=== PATIENT | male | born 1955 | race American Indian/Alaskan Native ===

== ENCOUNTER 2018-04-23 10:22 | Outpatient (CLI) | payer MEDICARE ==
--- NOTE | 2018-04-23 12:56 | XRay Report ---
XRAY CHEST TWO VIEWS: 04/23/18 10:22:00 CLINICAL: Cough. COMPARISON: 09/22/16 FINDINGS: Stable cardiomegaly. Large central pulmonary vessels with redistribution of pulmonary blood flow to the upper lobes.However, the pulmonary vessels are more distinct than on the prior exam. The lungs are normally expanded and clear. No airspace disease or pleural effusion. Dextroscoliosis and multilevel degenerative changes in the thoracic spine with large osteophytes. IMPRESSION: Cardiomegaly and pulmonary venous hypertension.No pulmonary edema and no pneumonia.
== END 2018-04-23 10:23 | disposition home or self-care (01) ==
LOC: SPVIMAG 10:22
DX: I11.0 Hypertensive heart disease with heart failure (principal); I50.9 Heart failure, unspecified; J44.1 Chronic obstructive pulmonary disease with (acute) exacerbation; Z71.6 Tobacco abuse counseling
CPT/HCPCS: 71046

== ENCOUNTER 2018-06-02 15:30 | Emergency (ER) | payer MEDICARE ==
[2018-06-02 15:41] VITALS: BP 128/79
[2018-06-02] MEDS ORDERED: PEPCID IV ONE (17:24)
[2018-06-02] MEDS ORDERED: ZOFRAN IV ONE ×2 (17:24→22:08)
--- NOTE | 2018-06-02 17:26 | Emergency Department Report ---
Blank Doc - Documentation Documentation: Patient is a 62-year-old -Ugand[place] male who is complaining of 3 weeks of epigastric pain. Patient states is having difficulty eating secondary to making his stomach hurt worse. Patient's pain is centered in the epigastrium there is no radiation. Patient states is 8 out of 10 in severity and sharp. Patient states is some mild nausea no vomiting. Patient did have some black stools 2 weeks ago he took a laxative and was able to use the bathroom quite a bit and now is not having bowel movements at all. Patient is very tender in the epigastrium with some voluntary guardin patient will be moved to a treatment room for IV fluids Ms. symptomatic relief and laboratory and CT studies..
[2018-06-02 17:44] LABS: Basophils # (Auto) 0.1 K/mm3 (0.0-0.1); Basophils % (Auto) 0.6 % (0.0-1.8); Eosinophils # (Auto) 0.2 K/mm3 (0.0-0.4); Eosinophils % (Auto) 1.7 % (0.0-4.3); Hematocrit 44.9 % (35.5-45.6); Hemoglobin 14.6 gm/dl (11.8-15.2); Lymphocytes # (Auto) 2.8 K/mm3 (1.2-5.4); Lymphocytes % (Auto) 27.7 % (13.4-35.0); Mean Corpuscular HGB Conc 33 % (32-34); Mean Corpuscular Hemoglobin 31 pg (28-32); Mean Corpuscular Volume 95 fl (84-94); Monocytes % (Auto) 9.4 % (0.0-7.3); Platelet Count 309 K/mm3 (140-440); Red Blood Count 4.74 M/mm3 (3.65-5.03); Red Cell Distribution Width 15.7 % (13.2-15.2)
[2018-06-02 17:55] LABS: Albumin 3.8 g/dL (3.9-5); Calcium 9.7 mg/dL (8.4-10.2)
--- NOTE | 2018-06-02 20:51 | Cat Scan Report ---
FINAL REPORT PROCEDURE: CT ABDOMEN PELVIS WO CON TECHNIQUE: Computerized axial tomography of the abdomen and pelvis was performed without intravenous contrast. This study is performed without intravascular contrast material and its sensitivity for abdominal and pelvic pathology, including neoplasms, inflammation, abscess, free fluid, thrombosis, arterial dissection and infarction, is reduced compared with a contrast enhanced study. HISTORY: epigastric pain COMPARISON: No prior studies are available for comparison. FINDINGS: Visualized lower thorax: No significant abnormality. Liver: There is diffuse low attenuation of the liver, compatible with fatty infiltration. Spleen: Normal size and attenuation. Gallbladder and biliary system: Gallbladder is present. Pancreas: There is haziness of the pancreatic head and body, which may be related to mild pancreatitis. Adrenals: Normal. Kidneys: No hydronephrosis or urolithiasis. GI tract: Appendix is visualized and does not appear inflamed. No bowel obstruction or acute inflammation. Lymph nodes and mesentery: Bilateral inguinal adenopathy, measuring up to 16 millimeters. Vasculature: Normal. Bladder: Normal. Reproductive organs: Normal. Peritoneum: No free fluid. Musculoskeletal structures: There are degenerative disc and facet arthritic changes of the lower lumbar spine. In the right subcutaneous gluteal region near the gluteal cleft there is a possible subcutaneous fluid collection/abscess, measuring up to 3 centimeters. This is not fully imaged. Other: None. IMPRESSION: Possible mild pancreatitis. Correlate with patient lab values. Bilateral inguinal lymphadenopathy. In the right subcutaneous gluteal region near the gluteal cleft there is a possible subcutaneous fluid collection/abscess, measuring up to 3 centimeters. This is not fully imaged.
--- NOTE | 2018-06-02 21:19 | Emergency Department Report ---
ED Abdominal Pain HPI - General Chief Complaint: Abdominal Pain Stated Complaint: STOMACH ACHE Time Seen by Provider: 06/02/18 17:15 Source: patient Mode of arrival: Ambulatory Limitations: No Limitations - History of Present Illness Initial Comments: 62-year-old -Togolese male with a past medical history of hypertension chronic kidney disease sleep apnea gout comes in for abdominal pain for 3 weeks. Patient reports he had some black stool at times. Patient reports is having problems with constipation and reports no relief with laxatives. Patient claims a mild to severe upper gastric knot in his stomach. Patient does admit to drinking alcohol on the weekends. Patient reports he took a hydrocodone but did not help with this pain. Patient denies having any diabetes. Patient denies any fever or chills. -: week(s) (3) Radiation: LUQ Severity scale (0 -10): 9 Quality: aching, sharp Consistency: constant Improves With: nothing Worsens With: nothing Associated Symptoms: constipation Treatments Prior to Arrival: other ([place]) - Related Data Home Medications Medication Instructions Recorded Confirmed Last Taken Aspirin [Adult Low Dose Aspirin EC] 81 mg PO DAILY 04/12/16 11/12/16 11/11/16 Allopurinol [Zyloprim] 100 mg PO BID 06/20/16 11/12/16 11/12/16 08:00 Previous Rx's Medication Instructions Recorded Last Taken Type ALBUTEROL Inhaler [ProAir HFA 2 puff IH QID PRN #1 inhalation 09/04/14 11/12/16 08:00 Rx Inhaler] Diltiazem [Cardizem] 30 mg PO TID #90 tablet 09/27/16 11/12/16 08:00 Rx HYDROcodone/APAP 10-325 [[place] 1 each PO Q8HR PRN #15 tablet 06/03/18 Unknown Rx 10/325] Omeprazole 40 mg PO QDAY 30 Days #30 06/03/18 Unknown Rx capsule. Allergies Allergy/AdvReac Type Severity Reaction Status Date / Time No Known Allergies Allergy Unverified 08/28/14 19:59 ED Review of Systems ROS: Stated complaint: STOMACH ACHE Other details as noted in HPI Constitutional: denies: chills, fever Cardiovascular: denies: chest pain, palpitations Gastrointestinal: abdominal pain, constipation Neurological: denies: headache, weakness, paresthesias Psychiatric: denies: anxiety, depression ED Past Medical Hx - Past Medical History Previous Medical History?: Yes Hx Hypertension: Yes (FOR 4 MTHS) Hx Heart Attack/AMI: No Hx Congestive Heart Failure: Yes Hx Renal Disease: Yes (CKD) Hx Arthritis: Yes Hx Seizures: No Hx Asthma: Yes Hx COPD: Yes (USE O2 2L N/C PRN) Hx HIV: No Additional medical history: gout, sleep apnea - Surgical History Past Surgical History?: Yes Additional Surgical History: right thigh surgery. lump removed from right jaw - Social History Smoking Status: Current Every Day Smoker Substance Use Type: Alcohol, Prescribed - Medications Home Medications: Home Medications Medication Instructions Recorded Confirmed Last Taken Type ALBUTEROL Inhaler [ProAir HFA 2 puff IH QID PRN #1 inhalation 09/04/14 11/12/16 11/12/16 08:00 Rx Inhaler] Aspirin [Adult Low Dose Aspirin EC] 81 mg PO DAILY 04/12/16 11/12/16 11/11/16 History Allopurinol [Zyloprim] 100 mg PO BID 06/20/16 11/12/16 11/12/16 08:00 History Diltiazem [Cardizem] 30 mg PO TID #90 tablet 09/27/16 11/12/16 11/12/16 08:00 Rx HYDROcodone/APAP 10-325 [[place] 1 each PO Q8HR PRN #15 tablet 06/03/18 Unknown Rx 10/325] Omeprazole 40 mg PO QDAY 30 Days #30 06/03/18 Unknown Rx capsule. ED Physical Exam - General Limitations: No Limitations General appearance: alert, in no apparent distress - Head Head exam: Present: atraumatic, normocephalic - Eye Eye exam: Present: normal appearance - ENT ENT exam: Present: mucous membranes moist - Neck Neck exam: Present: full ROM - Respiratory Respiratory exam: Present: normal lung sounds bilaterally. Absent: respiratory distress - Cardiovascular Cardiovascular Exam: Present: regular rate, normal rhythm. Absent: systolic murmur, diastolic murmur, rubs, gallop - GI/Abdominal GI/Abdominal exam: Present: soft, distended, tenderness (epigastric to left upper quadrant), guarding (mild guarding), normal bowel sounds - Extremities Exam Extremities exam: Present: normal inspection, full ROM - Back Exam Back exam: Present: normal inspection - Neurological Exam Neurological exam: Present: alert, oriented X3 - Psychiatric Psychiatric exam: Present: normal affect, normal mood ED Course Vital Signs 06/02/18 06/02/18 15:36 22:32 Temperature 98.5 F Pulse Rate 90 Respiratory 20 16 Rate Blood Pressure 128/79 O2 Sat by Pulse 97 Oximetry ED Medical Decision Making - Lab Data Result diagrams: 06/02/18 17:33 06/02/18 17:33 - Radiology Data Radiology results: report reviewed IMPRESSION: Possible mild pancreatitis. Correlate with patient lab values. Bilateral inguinal lymphadenopathy. In the right subcutaneous gluteal region near the gluteal cleft there is a possible subcutaneous fluid collection/abscess, measuring up to 3 centimeters. This is not fully imaged. Transcribed By: [facility] Dictated By: CLEMENTINA MUSTAFA M.D. Electronically Authenticated By: CLEMENTINA MUSTAFA M.D. Signed Date/Time: 06/02/182046 DD/ 46 TD/TT: 06/02/182046 - Medical Decision Making Patient has been evaluated by this provider fast track. Labs came back with elevated lipase of 126. CT came back concerning for mild pancreatitis. Orders were placed for IV fluids Dilaudid 1 mg Zofran 4 mg. Patient reports that his pain has ceased he feels much better. Discussed the patient to stay away from alcohol. Drink plenty of fluids and advance his diet as tolerated. Discussed patient to follow-up with gastroenterology as well as his primary care provider. I will discharge patient on pain medication. Critical care attestation.: If time is entered above; I have spent that time in minutes in the direct care of this critically ill patient, excluding procedure time. ED Disposition Clinical Impression: Acute pancreatitis without infection or necrosis Qualifiers: Pancreatitis type: unspecified pancreatitis type Qualified Code(s): K85.90 - Acute pancreatitis without necrosis or infection, unspecified Disposition: DC-01 TO HOME OR SELFCARE Is pt being admited?: No Does the pt Need Aspirin: No Condition: Stable Instructions: Pancreatitis (ED) Additional Instructions: Please take pain medication as needed. Please follow-up with the terrazzo layer as well as her primary care provider for further workup and evaluation. Prescriptions: HYDROcodone/APAP 10-325 [[place] 10/325] 1 each PO Q8HR PRN #15 tablet PRN Reason: Pain Omeprazole 40 mg PO QDAY 30 Days #30 capsule. Referrals: CHELITA PLUMMER [Other] - 3-5 Days [facility] [Provider Group] - 3-5 Days Forms: Work/School Release Form(ED)
[2018-06-02] MEDS ORDERED: DILAUDID IM ONE (22:08)
[2018-06-02] MEDS ORDERED: NACL 0.9% 1000 ML 1,000 ML IV ONE (22:08)
== END 2018-06-03 02:34 | disposition home or self-care (01) ==
LOC: ED 15:30
DX: K85.90 Acute pancreatitis without necrosis or infection, unspecified (principal); I13.0 Hypertensive heart and chronic kidney disease with heart failure and stage 1 through stage 4 chronic kidney disease, or unspecified chronic kidney disease; N18.9 Chronic kidney disease, unspecified; I50.9 Heart failure, unspecified; M19.90 Unspecified osteoarthritis, unspecified site; J44.9 Chronic obstructive pulmonary disease, unspecified; F17.200 Nicotine dependence, unspecified, uncomplicated; Z79.82 Long term (current) use of aspirin
CPT/HCPCS: 36415; 74176; 80053; 83690; 85025; 96361; 96372; 96374; 96375; 96376; 99284; J1170; J2405; J7030

== ENCOUNTER 2022-01-20 14:59 | Emergency (ER) | payer MEDICARE ==
[2022-01-20] MEDS ORDERED: SODIUM CHLORIDE 0.9% 1000 ML 1,000 ML IV ONE (15:39)
[2022-01-20] MEDS ORDERED: KETOROLAC 30 MG/1 ML INJ IV ONE (15:39)
[2022-01-20 16:22] LABS: Calcium 8.6 mg/dL (8.4-10.2)
[2022-01-20 16:32] LABS: INR 0.87 (0.87-1.13)
[2022-01-20 16:40] LABS: Basophils % (Auto) 0.4 % (0.0-1.8); Eosinophils % (Auto) 0.5 % (0.0-4.3); Hematocrit 34.2 % (35.5-45.6); Hemoglobin 11.9 gm/dl (11.8-15.2); Lymphocytes # (Auto) 2.4 K/mm3 (1.2-5.4); Lymphocytes % (Auto) 26.5 % (13.4-35.0); Mean Corpuscular HGB Conc 35 % (32-34); Mean Corpuscular Volume 98 fl (84-94); Monocytes # (Auto) 0.7 K/mm3 (0.0-0.8); Monocytes % (Auto) 8.2 % (0.0-7.3); Platelet Count 263 K/mm3 (140-440); Red Blood Count 3.49 M/mm3 (3.65-5.03); Red Cell Distribution Width 16.8 % (13.2-15.2)
[2022-01-20 16:59] LABS: Bilirubin,Urine NEG (Negative); Blood,Urine NEG (Negative); Color,Urine Yellow (Yellow); Mucus,Urine 1+ /HPF; Protein,Urine <15 mg/dL mg/dL (Negative); Urobilinogen,Urine < 2.0 mg/dL (<2.0)
--- NOTE | 2022-01-20 18:33 | Cat Scan Report ---
CT ABDOMEN AND PELVIS WITHOUT CONTRAST INDICATION / CLINICAL INFORMATION: Unspecified abdominal pain. TECHNIQUE: Axial CT images were obtained through the abdomen and pelvis without IV contrast. All CT scans at [facility] location are performed using CT dose reduction for ALARA by means of automated exposure control. COMPARISON: CT abdomen and pelvis without contrast from 06/06/2018. FINDINGS: LOWER CHEST: No significant abnormality. LIVER: No significant abnormality. GALLBLADDER: No significant abnormality. BILE DUCTS: No significant abnormality. PANCREAS: No significant abnormality. SPLEEN: No significant abnormality. ADRENALS: No significant abnormality. RIGHT KIDNEY/URETER: No significant abnormality. LEFT KIDNEY/URETER: No significant abnormality. STOMACH/SMALL BOWEL: No significant abnormality. COLON: Status post right hemicolectomy without acute findings. There is noninflamed descending and si gmoid diverticulosis. APPENDIX: Surgically absent. PERITONEUM: No free fluid. No free air. No fluid collection. LYMPH NODES: No significant adenopathy. VASCULATURE: There is mild generalized atherosclerosis without other significant abnormalities. URINARY BLADDER: Partially collapsed without acute findings. REPRODUCTIVE ORGANS: No significant abnormality. ADDITIONAL FINDINGS: A possible sebaceous cyst is seen anteriorly and medially along the proximal rig ht thigh at the level of the scrotum measuring up to 4.7 cm on image 2:30 of series 2. No significant surrounding fat stranding is identified. BONES: No acute findings. There are moderate degenerative changes of the spine and pelvis. IMPRESSION: 1. No acute abnormality of the abdomen or pelvis. 2. Additional findings as above. Signer Name: Anup Stanley MD Signed: 01/20/2022 6:28 PM Workstation Name: [id number]
--- NOTE | 2022-01-20 18:42 | Emergency Department Report ---
ED Abdominal Pain HPI - General Chief Complaint: Abdominal Pain Stated Complaint: ABD AND BACK PAIN Time Seen by Provider: 01/20/22 15:33 Source: patient Mode of arrival: Ambulatory Limitations: No Limitations - History of Present Illness Initial Comments: right side abdominal pain for last 24 hours, rghit side going to his back no nausea or voming nof ever no chest pain , history of htn and heart disease , no fever no chills , no urinary symtpoms MD Complaint: abdominal pain, flank pain -: Gradual, hour(s) Location: R flank Radiation: back Migration to: no migration Severity scale (0 -10): 8 Quality: aching Consistency: intermittent Improves With: nothing Worsens With: nothing - Related Data Home Medications Medication Instructions Recorded Confirmed Last Taken Aspirin [Adult Low Dose Aspirin EC] 81 mg PO DAILY 04/12/16 11/12/16 11/11/16 allopurinoL [Zyloprim] 100 mg PO BID 06/20/16 11/12/16 11/12/16 08:00 Previous Rx's Medication Instructions Recorded Last Taken Type Albuterol Mdi (or & Nicu Only) 2 puff IH QID PRN #1 inhalation 09/04/14 11/12/16 08:00 Rx [ProAir HFA Inhaler] dilTIAZem [Cardizem] 30 mg PO TID #90 tablet 09/27/16 11/12/16 08:00 Rx HYDROcodone/APAP 10-325 [[place] 1 each PO Q8HR PRN #15 tablet 06/03/18 Unknown Rx 10/325] Omeprazole 40 mg PO QDAY 30 Days #30 06/03/18 Unknown Rx capsule. Acetaminophen/Codeine [Tylenol 1 tab PO Q6H PRN #10 tab 01/20/22 Unknown Rx /Codeine # 3 tab] Cyclobenzaprine HCl [Flexeril 5 MG 5 mg PO TID #10 tab 01/20/22 Unknown Rx TAB] Allergies Allergy/AdvReac Type Severity Reaction Status Date / Time No Known Allergies Allergy Unverified 08/28/14 19:59 ED Review of Systems ROS: Stated complaint: ABD AND BACK PAIN Other details as noted in HPI Constitutional: denies: chills, fever Eyes: denies: eye pain, eye discharge, vision change ENT: denies: ear pain, throat pain Respiratory: denies: cough, shortness of breath, wheezing Cardiovascular: denies: chest pain, palpitations Endocrine: no symptoms reported Gastrointestinal: denies: abdominal pain, nausea, diarrhea Genitourinary: denies: urgency, dysuria Musculoskeletal: denies: back pain, joint swelling, arthralgia Skin: denies: rash, lesions Neurological: denies: headache, weakness, paresthesias Psychiatric: denies: anxiety, depression Hematological/Lymphatic: denies: easy bleeding, easy bruising ED Past Medical Hx - Past Medical History Hx Hypertension: Yes Hx Heart Attack/AMI: No Hx Congestive Heart Failure: Yes Hx Renal Disease: Yes (CKD) Hx Arthritis: Yes Hx Seizures: No Hx Asthma: Yes Hx COPD: Yes Hx HIV: No Additional medical history: gout, sleep apnea - Surgical History Additional Surgical History: right thigh surgery. lump removed from right jaw - Social History Smoking Status: Current Some Day Smoker - Medications Home Medications: Home Medications Medication Instructions Recorded Confirmed Last Taken Type Albuterol Mdi (or & Nicu Only) 2 puff IH QID PRN #1 inhalation 09/04/14 11/12/16 11/12/16 08:00 Rx [ProAir HFA Inhaler] Aspirin [Adult Low Dose Aspirin EC] 81 mg PO DAILY 04/12/16 11/12/16 11/11/16 History allopurinoL [Zyloprim] 100 mg PO BID 06/20/16 11/12/16 11/12/16 08:00 History dilTIAZem [Cardizem] 30 mg PO TID #90 tablet 09/27/16 11/12/16 11/12/16 08:00 Rx HYDROcodone/APAP 10-325 [[place] 1 each PO Q8HR PRN #15 tablet 06/03/18 Unknown Rx 10/325] Omeprazole 40 mg PO QDAY 30 Days #30 06/03/18 Unknown Rx capsule. Acetaminophen/Codeine [Tylenol 1 tab PO Q6H PRN #10 tab 01/20/22 Unknown Rx /Codeine # 3 tab] Cyclobenzaprine HCl [Flexeril 5 MG 5 mg PO TID #10 tab 01/20/22 Unknown Rx TAB] ED Physical Exam - General Limitations: No Limitations General appearance: alert, in no apparent distress - Head Head exam: Present: atraumatic, normocephalic - Eye Eye exam: Present: normal appearance - ENT ENT exam: Present: mucous membranes moist - Neck Neck exam: Present: normal inspection - Respiratory Respiratory exam: Present: normal lung sounds bilaterally. Absent: respiratory distress - Cardiovascular Cardiovascular Exam: Present: regular rate, normal rhythm. Absent: systolic murmur, diastolic murmur, rubs, gallop - GI/Abdominal GI/Abdominal exam: Present: tenderness, normal bowel sounds - Rectal Rectal exam: Present: deferred - Extremities Exam Extremities exam: Present: normal inspection - Back Exam Back exam: Present: normal inspection - Neurological Exam Neurological exam: Present: alert, oriented X3 - Psychiatric Psychiatric exam: Present: normal affect, normal mood - Skin Skin exam: Present: warm, dry, intact, normal color. Absent: rash ED Course Vital Signs 01/20/22 01/20/22 15:27 16:12 Temperature 100.0 F H Pulse Rate 93 H Respiratory 18 16 Rate Blood Pressure 136/63 O2 Sat by Pulse 96 Oximetry - Reevaluation(s) Reevaluation #1: 01/20/22 18:41 work up neg , vss , abc normal urine is clear, CT scan shwoed DDD , pain controlled ED Medical Decision Making - Lab Data Result diagrams: 01/20/22 15:52 01/20/22 15:52 Critical care attestation.: If time is entered above; I have spent that time in minutes in the direct care of this critically ill patient, excluding procedure time. ED Disposition Clinical Impression: Right flank pain, Back pain Disposition: 01 HOME / SELF CARE / HOMELESS Is pt being admited?: No Does the pt Need Aspirin: No Condition: Stable Prescriptions: Cyclobenzaprine HCl [Flexeril 5 MG TAB] 5 mg PO TID #10 tab Ketorolac [Toradol] 10 mg PO Q6H PRN #14 PRN Reason: Pain Referrals: [place] ANTHONY,ISABELLE ROMAN MD [Primary Care Provider] - 3-5 Days
[2022-01-20 19:08] VITALS: BP 160/70
== END 2022-01-20 19:10 | disposition home or self-care (01) ==
LOC: ED 14:59
DX: R10.13 Epigastric pain (principal); M54.9 Dorsalgia, unspecified; I10 Essential (primary) hypertension; Z86.79 Personal history of other diseases of the circulatory system
CPT/HCPCS: 36415; 74176; 80048; 81001; 82150; 83690; 85025; 85610; 96361; 96374; 99284; J1885; J7030; Q0162

== ENCOUNTER 2022-01-28 08:19 | Emergency (ER) | payer MEDICARE ==
--- NOTE | 2022-01-28 09:46 | Emergency Department Report ---
ED Male HPI - General Chief complaint: Skin/Abscess/Foreign Body Stated complaint: abscess Time Seen by Provider: 01/28/22 09:36 Source: patient, EMS Mode of arrival: Stretcher Limitations: No Limitations - History of Present Illness Initial comments: CC: boil is draining HPI: THis is a 66 yo male with hx of gout, CHF, COPD, GARRY, CKA, atrial fibrill ation, pancreatitis who presents with right side scrotal abscess. Abscess has been present for "quite a while". No hx of DM. Mild pain. Has had copious purulent drainage. He realized that he was sitting on of full of pus prior to his arrival. MD Complaint: other (Right scrotal abscess) -: Gradual, days(s) (Several days to weeks) Location: right testicle Severity: mild Consistency: constant Improves with: none Worsens with: none other (Purulent discharge) - Related Data Home Medications Medication Instructions Recorded Confirmed Last Taken Aspirin [Adult Low Dose Aspirin EC] 81 mg PO DAILY 04/12/16 11/12/16 11/11/16 allopurinoL [Zyloprim] 100 mg PO BID 06/20/16 11/12/16 11/12/16 08:00 Previous Rx's Medication Instructions Recorded Last Taken Type Albuterol Mdi (or & Nicu Only) 2 puff IH QID PRN #1 inhalation 09/04/14 11/12/16 08:00 Rx [ProAir HFA Inhaler] dilTIAZem [Cardizem] 30 mg PO TID #90 tablet 09/27/16 11/12/16 08:00 Rx HYDROcodone/APAP 10-325 [[place] 1 each PO Q8HR PRN #15 tablet 06/03/18 Unknown Rx 10/325] Omeprazole 40 mg PO QDAY 30 Days #30 06/03/18 Unknown Rx capsule. Acetaminophen/Codeine [Tylenol 1 tab PO Q6H PRN #10 tab 01/20/22 Unknown Rx /Codeine # 3 tab] Cyclobenzaprine HCl [Flexeril 5 MG 5 mg PO TID #10 tab 01/20/22 Unknown Rx TAB] Clindamycin [Clindamycin CAP] 300 mg PO TID 10 Days #30 cap 01/28/22 Unknown Rx Allergies Allergy/AdvReac Type Severity Reaction Status Date / Time No Known Allergies Allergy Unverified 08/28/14 19:59 ED Review of Systems ROS: Stated complaint: abscess Other details as noted in HPI Comment: All other systems reviewed and negative Constitutional: denies: chills, fever, malaise Respiratory: denies: cough, shortness of breath Cardiovascular: denies: chest pain Gastrointestinal: denies: abdominal pain, nausea, vomiting Skin: rash, lesions ED Past Medical Hx - Past Medical History Previous Medical History?: Yes Hx Hypertension: Yes Hx Heart Attack/AMI: No Hx Congestive Heart Failure: Yes Hx Renal Disease: Yes (CKD) Hx Arthritis: Yes Hx Seizures: No Hx Asthma: Yes Hx COPD: Yes Hx HIV: No Additional medical history: gout, sleep apnea - Surgical History Past Surgical History?: Yes Additional Surgical History: right thigh surgery. lump removed from right jaw - Social History Smoking Status: Current Some Day Smoker Substance Use Type: None - Medications Home Medications: Home Medications Medication Instructions Recorded Confirmed Last Taken Type Albuterol Mdi (or & Nicu Only) 2 puff IH QID PRN #1 inhalation 09/04/14 11/12/16 11/12/16 08:00 Rx [ProAir HFA Inhaler] Aspirin [Adult Low Dose Aspirin EC] 81 mg PO DAILY 04/12/16 11/12/16 11/11/16 History allopurinoL [Zyloprim] 100 mg PO BID 06/20/16 11/12/16 11/12/16 08:00 History dilTIAZem [Cardizem] 30 mg PO TID #90 tablet 09/27/16 11/12/16 11/12/16 08:00 Rx HYDROcodone/APAP 10-325 [[place] 1 each PO Q8HR PRN #15 tablet 06/03/18 Unknown Rx 10/325] Omeprazole 40 mg PO QDAY 30 Days #30 06/03/18 Unknown Rx capsule. Acetaminophen/Codeine [Tylenol 1 tab PO Q6H PRN #10 tab 01/20/22 Unknown Rx /Codeine # 3 tab] Cyclobenzaprine HCl [Flexeril 5 MG 5 mg PO TID #10 tab 01/20/22 Unknown Rx TAB] Clindamycin [Clindamycin CAP] 300 mg PO TID 10 Days #30 cap 01/28/22 Unknown Rx ED Physical Exam - General Limitations: No Limitations General appearance: alert, in no apparent distress - Head Head exam: Present: atraumatic, normocephalic - Eye Eye exam: Present: normal appearance - ENT ENT exam: Present: mucous membranes moist - Neck Neck exam: Present: normal inspection, full ROM - Respiratory Respiratory exam: Present: normal lung sounds bilaterally. Absent: respiratory distress, wheezes, rales, rhonchi - Cardiovascular Cardiovascular Exam: Present: regular rate, normal rhythm, normal heart sounds. Absent: systolic murmur, diastolic murmur, rubs, gallop - GI/Abdominal GI/Abdominal exam: Present: soft, normal bowel sounds. Absent: distended, tenderness, guarding, rebound - Rectal Rectal exam: Present: deferred - exam: Present: other (Right hemiscrotum: 7 x 3 cm area of edema with fluctuance 0.8 cm ulcer with copious purulent drainage, left side of the scrotum no edema mobile testicle) - Extremities Exam Extremities exam: Present: normal inspection - Neurological Exam Neurological exam: Present: alert, oriented X3 - Psychiatric Psychiatric exam: Present: normal affect, normal mood - Skin Skin exam: Present: warm, dry, intact, normal color. Absent: rash ED Course Vital Signs 01/28/22 08:28 Temperature 98.1 F Pulse Rate 86 Respiratory 16 Rate Blood Pressure 124/96 [Right] O2 Sat by Pulse 98 Oximetry - I & D Right Genitals Type of Procedure: Simple Blade Size: 11 I & D Procedure: betadine prep Progress: 1% lidocaine with epinephrine 5 mm injection 2 cm vertical incision with minimal expression of purulent material, inoculations broken with tissue spreaders. Sterile gauze placed over the wound. ED Medical Decision Making - Lab Data Result diagrams: 01/28/22 09:49 01/28/22 09:49 - Medical Decision Making Superficial scrotal abscess cellulitis: Majority of scrotum without evidence of infection. Work-up revealed mild leukocytosis 12,000, known CKD. Patient is afebrile with normal vital signs. He is nontoxic well-appearing. He appears comfortable. He received IV clindamycin emergency department as well as Tdap booster. Prescribed 10-day course of clindamycin. I suspect the majority of purulent material was expressed prior to incision and drainage. Referred to urologist for follow-up. Critical care attestation.: If time is entered above; I have spent that time in minutes in the direct care of this critically ill patient, excluding procedure time. ED Disposition Clinical Impression: Scrotal abscess Disposition: HOME / SELF CARE / HOMELESS Is pt being admited?: No Does the pt Need Aspirin: No Condition: Stable Instructions: Skin Abscess, [id number] Additional Instructions: Please keep area covered and dry. Please complete the 10-day course of antibiotics. Prescriptions: Clindamycin [Clindamycin CAP] 300 mg PO TID 10 Days #30 cap Referrals: MONIQUE PAIGE MD [Staff Physician] - 3-5 Days PRIMARY CARE, [Primary Care Provider] - 3-5 Days
[2022-01-28 10:10] LABS: Basophils % (Auto) 0.2 % (0.0-1.8); Eosinophils % (Auto) 0.4 % (0.0-4.3); Hematocrit 33.6 % (35.5-45.6); Hemoglobin 10.4 gm/dl (11.8-15.2); Lymphocytes # (Auto) 1.8 K/mm3 (1.2-5.4); Lymphocytes % (Auto) 13.9 % (13.4-35.0); Mean Corpuscular HGB Conc 31 % (32-34); Mean Corpuscular Volume 100 fl (84-94); Monocytes # (Auto) 1.2 K/mm3 (0.0-0.8); Monocytes % (Auto) 9.6 % (0.0-7.3); Platelet Count 378 K/mm3 (140-440); Red Blood Count 3.35 M/mm3 (3.65-5.03); Red Cell Distribution Width 16.4 % (13.2-15.2)
[2022-01-28] MEDS ORDERED: TETANUS,DIPH,PERTUSS(ACELL) VACCINE 0.5 ML SYRINGE IM ONE (10:23)
[2022-01-28] MEDS ORDERED: LIDOCAINE 2%/EPINEPHRINE 1:100,000 VIAL (20 ML) INFILTRATI ONE (10:23)
[2022-01-28 10:28] LABS: Calcium 9.3 mg/dL (8.4-10.2)
[2022-01-28] MEDS ORDERED: HYDROcodone/ACETAMINOPHEN 5-325 MG TAB PO SCH (10:30)
[2022-01-28 13:14] VITALS: BP 132/94
== END 2022-01-28 13:31 | disposition home or self-care (01) ==
LOC: ED 08:19
DX: N49.2 Inflammatory disorders of scrotum (principal); I13.0 Hypertensive heart and chronic kidney disease with heart failure and stage 1 through stage 4 chronic kidney disease, or unspecified chronic kidney disease; N18.9 Chronic kidney disease, unspecified; I50.9 Heart failure, unspecified; M19.90 Unspecified osteoarthritis, unspecified site; J45.909 Unspecified asthma, uncomplicated; Z98.890 Other specified postprocedural states; F17.200 Nicotine dependence, unspecified, uncomplicated
CPT/HCPCS: 36415; 55100; 80048; 85025; 96365; 99284; J3490

== ENCOUNTER 2022-07-01 19:21 | Emergency (ER) | payer MEDICARE ==
[2022-07-01] MEDS ORDERED: dilTIAZem 25 MG/5 ML INJ IV ONE (20:36)
[2022-07-01] MEDS ORDERED: ASPIRIN 81 MG TAB CHEW PO ONE (20:52)
--- NOTE | 2022-07-01 21:00 | Emergency Department Report ---
ED Chest Pain HPI - General Chief Complaint: Chest Pain Stated Complaint: CHEST PAIN Time Seen by Provider: 07/01/22 20:52 Source: patient, EMS Mode of arrival: Stretcher Limitations: No Limitations - History of Present Illness Initial Comments: 67-year-old morbidly obese male with a history of CKD, CHF, COPD and obstructive sleep apnea who presents with chest pain that started about 3 days ago progressively getting worse. Chest pain is described as pressure in the middle of the chest and associated with shortness of breath. No fever or chills rep orted. Patient also reports some heart palpitation. Patient unsure if he has history of atrial fibrillation he remembered being told having irregular heartbeat. No other modifying or associated factors reported. Severity scale (0 -10): 8 - Related Data Home Medications Medication Instructions Recorded Confirmed Last Taken Aspirin [Adult Low Dose Aspirin EC] 81 mg PO DAILY 04/12/16 11/12/16 11/11/16 allopurinoL [Zyloprim] 100 mg PO BID 06/20/16 11/12/16 11/12/16 08:00 Previous Rx's Medication Instructions Recorded Last Taken Type Albuterol Mdi (or & Nicu Only) 2 puff IH QID PRN #1 inhalation 09/04/14 11/12/16 08:00 Rx [ProAir HFA Inhaler] dilTIAZem [Cardizem] 30 mg PO TID #90 tablet 09/27/16 11/12/16 08:00 Rx HYDROcodone/APAP 10-325 [[place] 1 each PO Q8HR PRN #15 tablet 06/03/18 Unknown Rx 10/325] Omeprazole 40 mg PO QDAY 30 Days #30 06/03/18 Unknown Rx capsule. Acetaminophen/Codeine [Tylenol 1 tab PO Q6H PRN #10 tab 01/20/22 Unknown Rx /Codeine # 3 tab] Cyclobenzaprine HCl [Flexeril 5 MG 5 mg PO TID #10 tab 01/20/22 Unknown Rx TAB] Clindamycin [Clindamycin CAP] 300 mg PO TID 10 Days #30 cap 01/28/22 Unknown Rx cephALEXin [Keflex] 500 mg PO Q12HR 7 Days #14 cap NS 07/02/22 Unknown Rx Allergies Allergy/AdvReac Type Severity Reaction Status Date / Time No Known Allergies Allergy Unverified 08/28/14 19:59 Heart Score - HEART Score History: Moderately suspicious EKG: Non-specific Age: > 65 Risk factors: 1-2 risk factors Troponin: 1-3x normal limit HEART Score: 6 - EKG Read Time Time EKG Completed: 20:05 EKG Read Time: 20:15 - Critical Actions Critical Actions: 0-3 pts:0.9-1.7%risk of adverse cardiac event.Candidate for discharge ED Review of Systems ROS: Stated complaint: CHEST PAIN Other details as noted in HPI Respiratory: cough, shortness of breath, SOB with exertion Cardiovascular: chest pain ED Past Medical Hx - Past Medical History Hx Hypertension: Yes Hx Heart Attack/AMI: No Hx Congestive Heart Failure: Yes Hx Renal Disease: Yes (CKD) Hx Arthritis: Yes Hx Seizures: No Hx Asthma: Yes Hx COPD: Yes Hx HIV: No Additional medical history: gout, sleep apnea - Surgical History Additional Surgical History: right thigh surgery. lump removed from right jaw - Social History Smoking Status: Unknown if ever smoked - Medications Home Medications: Home Medications Medication Instructions Recorded Confirmed Last Taken Type Albuterol Mdi (or & Nicu Only) 2 puff IH QID PRN #1 inhalation 09/04/14 11/12/16 11/12/16 08:00 Rx [ProAir HFA Inhaler] Aspirin [Adult Low Dose Aspirin EC] 81 mg PO DAILY 04/12/16 11/12/16 11/11/16 History allopurinoL [Zyloprim] 100 mg PO BID 06/20/16 11/12/16 11/12/16 08:00 History dilTIAZem [Cardizem] 30 mg PO TID #90 tablet 09/27/16 11/12/16 11/12/16 08:00 Rx HYDROcodone/APAP 10-325 [[place] 1 each PO Q8HR PRN #15 tablet 06/03/18 Unknown R x 10/325] Omeprazole 40 mg PO QDAY 30 Days #30 06/03/18 Unknown Rx capsule. Acetaminophen/Codeine [Tylenol 1 tab PO Q6H PRN #10 tab 01/20/22 Unknown Rx /Codeine # 3 tab] Cyclobenzaprine HCl [Flexeril 5 MG 5 mg PO TID #10 tab 01/20/22 Unknown Rx TAB] Clindamycin [Clindamycin CAP] 300 mg PO TID 10 Days #30 cap 03/07/22 Unknown Rx cephALEXin [Keflex] 500 mg PO Q12HR 7 Days #14 cap NS 07/02/22 Unknown Rx ED Physical Exam - General Limitations: No Limitations General appearance: alert, in no apparent distress - Head Head exam: Present: normal inspection - Eye Eye exam: Present: normal appearance Pupils: Present: normal accommodation - ENT ENT exam: Present: normal exam, normal orophraynx, mucous membranes moist - Neck Neck exam: Present: normal inspection, full ROM. Absent: tenderness - Respiratory Respiratory exam: Present: normal lung sounds bilaterally. Absent: respiratory distress, accessory muscle use - Cardiovascular Cardiovascular Exam: Present: tachycardia, irregular rhythm, normal heart sounds - GI/Abdominal GI/Abdominal exam: Present: soft, normal bowel sounds. Absent: distended, tenderness - Extremities Exam Extremities exam: Present: pedal edema - Back Exam Back exam: Absent: tenderness - Neurological Exam Neurological exam: Present: alert, oriented X3 - Psychiatric Psychiatric exam: Present: normal affect, normal mood - Skin Skin exam: Present: warm, normal color ED Course Vital Signs 07/01/22 07/01/22 07/01/22 20:04 20:06 20:07 Temperature 98 F 98.3 F Pulse Rate 166 H 164 H 163 H Respiratory 16 21 16 Rate Blood Pressure Blood Pressure 150/80 [Right] O2 Sat by Pulse 98 95 97 Oximetry 07/01/22 07/01/22 07/01/22 20:15 20:24 20:31 Temperature Pulse Rate 164 H 142 H Respiratory 18 20 Rate Blood Pressure 105/64 105/64 Blood Pressure [Right] O2 Sat by Pulse 95 98 95 Oximetry 07/01/22 07/01/22 07/01/22 20:40 20:45 21:01 Temperature Pulse Rate 163 H 77 77 Respiratory 17 12 Rate Blood Pressure 105/47 96/55 96/55 Blood Pressure [Right] O2 Sat by Pulse 93 97 Oximetry 07/01/22 07/01/22 07/01/22 21:15 21:31 21:45 Temperature Pulse Rate 83 91 H 83 Respiratory 14 13 19 Rate Blood Pressure 128/63 128/63 115/67 Blood Pressure [Right] O2 Sat by Pulse 96 94 94 Oximetry 07/01/22 07/01/22 07/01/22 22:01 22:15 22:31 Temperature Pulse Rate 83 85 91 H Respiratory 15 13 14 Rate Blood Pressure 96/55 128/51 128/51 Blood Pressure [Right] O2 Sat by Pulse 94 94 95 Oximetry 07/01/22 07/01/22 07/01/22 22:45 23:01 23:15 Temperature Pulse Rate 86 97 H 89 Respiratory 15 14 12 Rate Blood Pressure 114/58 128/51 113/65 Blood Pressure [Right] O2 Sat by Pulse 93 72 L 91 Oximetry 07/01/22 23:31 Temperature Pulse Rate 92 H Respiratory 14 Rate Blood Pressure 114/58 Blood Pressure [Right] O2 Sat by Pulse 94 Oximetry - Reevaluation(s) Reevaluation #1: 07/02/22 00:13 pt signed out to Dr Curry while waiting for 2nd troponin TAMARA score - Tamara Score Age > 65: (0) No Aspirin use within the Past 7 Days: (0) No 3 or more CAD Risk Factors: (1) Yes 2 or more Angina events in past 24 hrs: (0) No Known CAD with more than 50% Stenosis: (0) No Elevated Cardiac Markers: (1) Yes ST Deviation Greater than 0.5mm: (0) No TAMARA Score: 2 ED Medical Decision Making - Lab Data Result diagrams: 07/01/22 21:21 07/01/22 21:21 - EKG Data -: EKG Interpreted by Pr Rate: tachycardia - EKG Data 07/01/22 21:01 Noted with supraventricular tachycardia at the rate of 163 bpm with possible LVH and this abnormal ECG. 07/01/22 21:11 2nd EKG drawn after Cardizem was given at 20:49 PM shows atrial fibrillation at 82 bpm with LVH and this abnormal ECG. - Medical Decision Making Here with chest pain/pressure associated with tachyarrhythmia--differential could be but not limited to myocardial infarction, pulmonary embolism, costochondritis, anxiety, gastritis, GERD, pancreatitis, and or pyelonep hritis--in order to rule out the above-- so will go ahead and order routine cardiopulmonary work-up that include troponin, EKG, chest x-ray, BNP, CKMB, and CBC, CMP and urinalysis for any correctable infectious process or electrolyte abnormality as a cause. Given cardizem 20 mg IV x 1 with improvement to 80s bpm -- a-fib Give Cardizem 20 mg IV x 1 with improvement in heart rate to less than 100 see as noted above 2nd recorded EKG for details-- Pt also noted with small blancheable erythema right lower abdominal crease -- consistent with cellulitis will d/c home Keflex 500 mg PO x 7 days-- Critical care attestation.: If time is entered above; I have spent that time in minutes in the direct care of this critically ill patient, excluding procedure time. ED Disposition Clinical Impression: Chest pain Qualifiers: Chest pain type: unspecified Qualified Code(s): R07.9 - Chest pain, unspecified A-fib Qualifiers: Atrial fibrillation type: unspecified Qualified Code(s): I48.91 - Unspecified atrial fibrillation Cellulitis Qualifiers: Site of cellulitis: trunk Site of cellulitis of trunk: abdominal wall Qualified Code(s): L03.311 - Cellulitis of abdominal wall Disposition: 01 HOME / SELF CARE / HOMELESS Is pt being admited?: No Does the pt Need Aspirin: No Condition: Stable Instructions: Nonspecific Chest Pain, Adult, Atrial Fibrillation, Glhi-me-Sjof, Cellulitis, Adult Additional Instructions: Take and complete your antibiotics as prescribed Call and follow-up with your primary doctor in the next 3 to 5 days for progress Please do not hesitate to call or return to emergency if your symptoms worsen Prescriptions: cephALEXin [Keflex] 500 mg PO Q12HR 7 Days #14 cap NS Time of Disposition: 00:17
--- NOTE | 2022-07-01 21:48 | XRay Report ---
CHEST 2 VIEWS INDICATION / CLINICAL INFORMATION: Chest Pain. COMPARISON: 04/23/2019 FINDINGS: SUPPORT DEVICES: None. HEART / MEDIASTINUM: Cardiomegaly LUNGS / PLEURA: There is pulmonary vascular indistinctness. No pneumothorax. ADDITIONAL FINDINGS: No significant additional findings. IMPRESSION: 1. Cardiomegaly with mild pulmonary edema. Signer Name: Tony Ackerman DO Signed: 07/01/2022 9:43 PM Workstation Name: [id number]
[2022-07-01 21:52] LABS: Basophils # (Auto) 0.1 K/mm3 (0.0-0.1); Basophils % (Auto) 0.5 % (0.0-1.8); Eosinophils % (Auto) 0.4 % (0.0-4.3); Hematocrit 33.3 % (35.5-45.6); Hemoglobin 10.9 gm/dl (11.8-15.2); Lymphocytes # (Auto) 2.9 K/mm3 (1.2-5.4); Lymphocytes % (Auto) 28.3 % (13.4-35.0); Mean Corpuscular HGB Conc 33 % (32-34); Mean Corpuscular Volume 104 fl (84-94); Monocytes # (Auto) 0.7 K/mm3 (0.0-0.8); Monocytes % (Auto) 6.8 % (0.0-7.3); Platelet Count 487 K/mm3 (140-440); Red Blood Count 3.22 M/mm3 (3.65-5.03); Red Cell Distribution Width 15.4 % (13.2-15.2)
[2022-07-01 22:00] LABS: INR 0.93 (0.87-1.13); Partial Thromboplastin Time 29.8 Sec. (24.2-36.6)
[2022-07-01 22:14] LABS: Albumin 3.2 g/dL (3.9-5); Calcium 8.7 mg/dL (8.4-10.2)
[2022-07-01 22:55] VITALS: BP 114/58
[2022-07-01 23:04] LABS: Chol/HDL Ratio 2.7 %
--- NOTE | 2022-07-03 10:57 | Electrocardiograph Report ---
[facility] Test Date: 2022-07-01 Test Time: 20:49:50 Pat Name: PETER STERN Department: Room: Gender: M Slab Puller: RACIEL : 1955 Requested By: KADY MIMS Order Number: [id number] Reading MD: Solis Cavanaugh Measurements Intervals [place] Rate: 82 P: AR: QRS: -20 QRSD: 103 T: 127 QT: 397 QTc: 466 Interpretive Statements Atrial fibrillation LVH with secondary repolarization abnormality Compared to ECG 07/01/2022 20:05:05 Supraventricular tachycardia no longer present Electronically Signed On 07-03-2022 10:57:06 EDT by Solis Cavanaugh
--- NOTE | 2022-07-03 10:57 | Electrocardiograph Report ---
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
== END 2022-07-02 00:38 | disposition home or self-care (01) ==
LOC: ED 19:21
DX: R07.9 Chest pain, unspecified (principal); L03.90 Cellulitis, unspecified; I48.91 Unspecified atrial fibrillation; I13.0 Hypertensive heart and chronic kidney disease with heart failure and stage 1 through stage 4 chronic kidney disease, or unspecified chronic kidney disease; N18.9 Chronic kidney disease, unspecified; I50.9 Heart failure, unspecified; M19.90 Unspecified osteoarthritis, unspecified site; J45.909 Unspecified asthma, uncomplicated; Z79.899 Other long term (current) drug therapy
CPT/HCPCS: 36415; 71046; 80053; 80061; 83690; 84484; 85025; 85610; 85730; 93005; 96374; 99284; J3490